=== PATIENT | female | born 1985 | race Asian ===

== ENCOUNTER 2019-12-31 11:45 | Emergency (ER) | payer MEDICAID ==
[~2019-12-31] VITALS: Ht 162.6 cm; Wt 55.8 kg
[2019-12-31 12:16] VITALS: Ht 162.6 cm; Wt 55.8 kg
[2019-12-31 12:55] VITALS: BP 125/74
== END 2019-12-31 12:55 | disposition home or self-care (01) ==
LOC: ED 11:45
DX: R21 Rash and other nonspecific skin eruption (principal)